=== PATIENT | male | born 1975 | race Two or more races ===

== ENCOUNTER 2017-01-08 11:02 | Outpatient (CLI) ==
[2017-01-08 11:33] LABS: FLU INTERNAL QC INTERNAL QC VALID; RAPID FLU A NEGATIVE (NEGATIVE); RAPID FLU B NEGATIVE (NEGATIVE)
== END 2017-01-08 11:03 | disposition home or self-care (01) ==
LOC: LAB 11:02
PROVIDERS: ATTEND Physician Assistant
DX: B34.9 Viral infection, unspecified (principal)
CPT/HCPCS: 87804

== ENCOUNTER 2017-12-13 11:54 | Emergency (ER) ==
[2017-12-13 12:00] VITALS: BP 135/91; TEMP 97.7; BMI 31.4
--- NOTE | 2017-12-13 12:18 | ED.PDOC ---
General ED Provider: Dr. FLORI QUIROGA Chief Complaint: Kidney Stone Stated Complaint: Severe Flank Pain. Initial onset yesterday then subsided and went home after coming to be checked in ER. This morning returned with Severe pain in Rt Flank and Rt Lower abdomen Time Seen by Physician: 12:10 Mode of Arrival: Walk-In Information Source: Patient Exam Limitations: No limitations Primary Care Provider: DAJA WYMAN Referred to ED by: PCP Nursing and Triage Documentation Reviewed and Agree: Yes Reviewed sepsis parameters & appropriate labs ordered?: Yes System Inflammatory Response Syndrome: Not Applicable Sepsis Protocol: For patient's 13 years and over: Temp is 96.8 and below OR 101 and greater Pulse >90 BPM Resp >20/minute Acutely Altered Mental Status Are patient's symptoms suggestive of a new infection, such as: -Pneumonia -Skin, Soft Tissue -Endocarditis -UTI -Bone, Joint Infection -Implantable Device -Acute Abdominal Infection -Wound Infection -Meningitis -Blood Stream Catheter Infection -Unknown System Inflammatory Response Syndrome: Not Applicable Complaint Exam - Complaint/Exam Onset/Duration: Earlier this AM Symptoms Are: Still present Timing: Constant Initial Severity: Mild Current Severity: Moderate Location of Pain: Reports: Right, Flank Character: Reports: Sharp, Colicky Aggravating: Reports: None Alleviating: Reports: None Associated Signs and Symptoms: Reports: Back pain, Nausea Related History: Reports: Similar episode (previous renal stones) Review of Systems - Review Of Systems Constitutional: Reports: Sweats, Loss of appetite Eyes: Reports: No symptoms Ears, Nose, Mouth, Throat: Reports: No symptoms Respiratory: Reports: No symptoms Cardiac: Reports: No symptoms GI: Reports: No symptoms : Reports: Flank pain Musculoskeletal: Reports: No symptoms Skin: Reports: No symptoms Neurological: Reports: No symptoms Endocrine: Reports: No symptoms Hematologic/Lymphatic: Reports: No symptoms All Other Systems: Reviewed and Negative Past Medical History - Past Medical History Previously Healthy: Yes Endocrine: Reports: None Cardiovascular: Reports: None Respiratory: Reports: None Hematological: Reports: None Gastrointestinal: Reports: None Genitourinary: Reports: Kidney stones Neuro/Psych: Reports: None Musculoskeletal: Reports: None Cancer: Reports: None - Surgical History General Surgical History: Reports: None - Family History Family History: Reports: None - Social History Smoking Status: Never smoker Hx Substance Use: No Alcohol Screening: None Physical Exam - Physical Exam Appearance: Ill-appearing Ill-appearing: Moderate Pain Distress: Moderate Eyes: KRISTI, EOMI, Conjunctiva clear ENT: Ears normal, Nose normal, Oropharynx normal Neck: Supple Respiratory: Airway patent, Breath sounds clear, Breath sounds equal Cardiovascular: RRR, Pulses normal, No rub, No murmur GI/: Soft, Nontender, No masses, Bowel sounds normal Musculoskeletal: Normal strength, ROM intact, No edema, No calf tenderness, Limited ROM Skin: Warm, Dry, Normal color Neurological: Sensation intact, Motor intact, Alert, Oriented Psychiatric: Affect appropriate, Anxious Interpretation - Radiology Interpretation Radiology Interpretation By: Radiologist Radiology Results: Positive Exam Interpreted: CT Scan Xray Comments: LT HYDRONEPHROSIS/DISTAL LT URETERAL STONE 0.3 CM Re-Evaluation - Re-Evaluation Time of Re-Evaluation: 16:30 Status: Improved Vital Signs Stable: Yes Appearance: NAD Lungs: Clear Skin: Warm and Dry Neuro: Alert and Oriented X3 CV: RRR Critical Care Note - Critical Care Note Total Time (mins): 0 Course - Course Hematology/Chemistry: 12/13/17 13:14 12/13/17 13:14 Orders, Labs, Meds: Lab Review 12/13/17 12/13/17 12/13/17 12:41 13:14 13:14 WBC 7.12 RBC 5.01 Hgb 15.4 Hct 43.8 MCV 87.4 MCH 30.7 MCHC 35.2 RDW Coeff of Kaela 12.8 Plt Count 182 Immature Gran % (Auto) 0.1 Neut % (Auto) 46.3 Lymph % (Auto) 41.3 Simpson % (Auto) 10.5 H Eos % (Auto) 1.4 Baso % (Auto) 0.4 Immature Gran # (Auto) 0.0 Neut # (Auto) 3.3 Lymph # (Auto) 2.9 Simpson # (Auto) 0.8 Eos # (Auto) 0.1 Baso # (Auto) 0.0 Sodium 140 Potassium 4.0 Chloride 102 Carbon Dioxide 24 Anion Gap 18.0 BUN 13 Creatinine 0.99 Estimated GFR (MDRD) 83.00 BUN/Creatinine Ratio 13.13 Glucose 99 Calcium 9.6 Total Bilirubin 1.2 AST 23 ALT 31 Alkaline Phosphatase 58 Total Protein 7.4 Albumin 4.1 Globulin 3.3 Albumin/Globulin Ratio 1.24 Urine Color Yellow Urine Clarity Clear Urine pH 5.5 Ur Specific [place] 1.015 Urine Protein Negative Urine Glucose (UA) Negative Urine Ketones Negative Urine Blood 3+ Urine Nitrite Negative Urine Bilirubin Negative Urine Urobilinogen 0.2 Ur Leukocyte Esterase Negative Urine Microscopic RBC 20-30 Ur Squamous Epith Cells Not present Orders Category Date Time Status Strain Urine [STRAIN URINE] ONCE CARE 12/13/17 16:47 Active CBC W/ AUTO DIFF Stat LAB 12/13/17 13:14 Completed CMP [COMPREHENSIVE METABOLIC PANEL] Stat LAB 12/13/17 13:14 Completed URINALYSIS C & S IF INDICATED Stat LAB 12/13/17 12:41 Completed Hydromorphone HCl [Dilaudid 1 mg/ml Syringe] MEDS 12/13/17 13:49 Discontinued 1 mg IVP ONCE STA Ketorolac Tromethamine [Toradol] MEDS 12/13/17 12:14 Discontinued 30 mg IVP ONCE STA Ondansetron HCl/Pf [Zofran 4 mg/2 ml] MEDS 12/13/17 12:15 Discontinued 4 mg IVP ONCE STA Promethazine HCl [Phenergan 25 mg/ml Vial] MEDS 12/13/17 13:56 Discontinued 25 mg .ROUTE .STK-MED ONE Promethazine HCl [Phenergan 25 mg/ml Vial] 25 mg MEDS 12/13/17 13:50 Discontinued 0.9 % Sodium Chloride [Sodium Chloride] 50 ml IV ONCE Tamsulosin HCl [Flomax] MEDS 12/13/17 12:16 Discontinued 0.4 mg PO ONCE STA CT ABD/PEL WO RENAL STONE PROT Stat RADS 12/13/17 13:52 Completed Medications Discontinued Medications Generic Name Dose Route Start Last Admin Trade Name Carole PRN Reason Stop Dose Admin Hydromorphone HCl 1 mg 12/13/17 13:49 12/13/17 14:15 Dilaudid 1 Mg/Ml Syringe IVP 12/13/17 13:50 1 mg ONCE STA Administration Promethazine HCl 25 mg/ Sodium 51 mls @ 75 mls/hr 12/13/17 13:50 12/13/17 14: 14 Chloride IV 12/13/17 14:30 75 mls/hr ONCE STA Administration Ketorolac Tromethamine 30 mg 12/13/17 12:14 12/13/17 12:27 Toradol IVP 12/13/17 12:15 30 mg ONCE STA Administration Ondansetron HCl 4 mg 12/13/17 12:15 12/13/17 12:27 Zofran 4 Mg/2 Ml IVP 12/13/17 12:16 4 mg ONCE STA Administration Tamsulosin HCl 0.4 mg 12/13/17 12:16 12/13/17 12:24 Flomax PO 12/13/17 12:17 0.4 mg ONCE STA Administration Vital Signs: Temp Pulse Resp BP Pulse Ox 12/13/17 11:54 97.7 F 54 L 20 135/91 H 98 Departure - Departure Time of Disposition: 16:45 Disposition: HOME SELF-CARE Discharge Problem: Kidney stone on left side Instructions: Kidney Stones (ED) Condition: Good Pt referred to PMD for follow-up: Yes (PCP OR UROLOGIST) IPMP verified?: No Additional Instructions: STRAIN ALL URINE SCHEDULE FOLLOW UP WITH UROLOGIST /PCP RETAIN STONE WHEN PASSES AND PLACE IN CLEAN CONTAINER=-TAKE IN FOR SUBMISSION IN ORDER TO HAVE ANALYZED TAKE ANALGESICS FOR PAIN DIRECTED Allergies/Adverse Reactions: Allergies No Known Allergies Allergy (Unverified 12/13/17 12:02) Home Medications: Ambulatory Orders Atorvastatin Calcium 20 mg PO DAILY 12/13/17 Cetirizine HCl [Zyrtec] 10 mg PO DAILY 12/13/17 Oxycodone-Acetaminophe 7.5-325 [Percocet 7.5-325] 1 tab PO Q6H PRN #10 tablet Tamsulosin HCl [Flomax] 0.4 mg PO DAILY #10 cap.er.24h 12/13/17 Disposition Discussed With: Patient, Family
[2017-12-13] MEDS: FLOMAX PO STA (12:24)
[2017-12-13] MEDS: TORADOL IVP STA (12:27)
[2017-12-13] MEDS: ZOFRAN 4 MG/2 ML IVP STA (12:27)
[2017-12-13] MEDS: PHENERGAN 25 MG/ML VIAL 25 MG in SODIUM CHLORIDE 50 ML IV STA (14:14)
[2017-12-13] MEDS: DILAUDID 1 MG/ML SYRINGE IVP STA (14:15)
[2017-12-13] MEDS: PHENERGAN 25 MG/ML VIAL ONE (14:15)
--- NOTE | 2017-12-13 14:22 | CT ---
EXAM: CT abdomen pelvis without contrast HISTORY: Severe left flank pain COMPARISON: None TECHNIQUE: Serial axial images of the abdomen pelvis were performed from the lung bases through the inferior pelvis without contrast. These were viewed in multiple planes. FINDINGS: The lung bases are clear. Evaluation is limited due to lack of contrast. The liver is unremarkable. The gallbladder is disten ded. The adrenal glands are normal. There is a 0.2 cm calcification in the right kidney which is no nobstructing. The left kidney demonstrates mild hydronephrosis and hydroureter secondary to a 0.4 cm stone in the distal left ureter proximal to the UVJ. There is minimally distended urinary bladder. Pancreas is unremarkable. Stomach is unremarkable. Small bowel in the abdomen pelvis is unremarkable. The appendix is unremarkable. The colon is unrem arkable. Prostate is normal. There is no free air, free fluid or lymphadenopathy. The osseous stru ctures are unremarkable. IMPRESSION: Mild left hydronephrosis and hydroureter secondary to a 0.4 cm stone in the distal left ureter proxim al to the UVJ. Nonobstructing right renal stone.
== END 2017-12-13 17:15 | disposition home or self-care (01) ==
LOC: ED 11:54
DX: N20.0 Calculus of kidney (principal); Z87.442 Personal history of urinary calculi
CPT/HCPCS: 36415; 74176; 80053; 81001; 85025; 96365; 96375; 99283